=== PATIENT | female | born 1990 | race Caucasian/White ===

== ENCOUNTER 2018-03-13 12:30 | Outpatient (CLI) ==
--- NOTE | 2018-03-14 01:31 | DI ---
EXAM: Left hip, two views HISTORY: Pain COMPARISON: None. FINDINGS: The alignment is normal. Joint spaces appear normal. No fracture is identified. Intraut erine device seen in the central pelvis IMPRESSION: No fracture or dislocation or joint space narrowing is identified.
--- NOTE | 2018-03-14 01:35 | DI ---
EXAM: Right knee, four views HISTORY: Pain COMPARISON: None. FINDINGS: The alignment is normal. Joint spaces appear normal. No fracture is identified. IMPRESSION: No fracture or dislocation or joint space narrowing is identified.
--- NOTE | 2018-03-14 08:56 | DI ---
EXAM: Four views of the thoracolumbar spine. History: Lower back pain. Findings: No acute fracture or subluxation of the thoracic spine. A few prominent Schmorl's nodes a re seen within the lower thoracic spine. Mild disc space narrowing seen within the lower thoracic sp ine. No abnormal calcifications or radiopaque foreign bodies. Impression: 1. No acute osseous abnormality. 2. Mild degenerative changes within the lower thoracic spine.
== END 2018-03-13 12:31 | disposition home or self-care (01) ==
LOC: LAB 12:30
PROVIDERS: ATTEND Nurse Practitioner Family
DX: Z00.00 Encounter for general adult medical examination without abnormal findings (principal); M25.561 Pain in right knee; M25.552 Pain in left hip; G89.29 Other chronic pain; M54.5 Low back pain
CPT/HCPCS: 36415; 80053; 80061; 84443; 85025

== ENCOUNTER 2018-11-25 12:46 | Outpatient (CLI) | END 2018-11-25 12:47 | disposition home or self-care (01) | LOC: RHC-LAB 12:46 → FCC-LAB 12:47 | PROVIDERS: ATTEND Nurse Practitioner Family | DX: J02.9 Acute pharyngitis, unspecified (principal); L52 Erythema nodosum | CPT/HCPCS: 36415; 80053; 85025; 85651; 86060; 86140; 86430; 87651 ==

== ENCOUNTER 2018-11-29 08:18 | Outpatient (CLI) | END 2018-11-29 08:19 | disposition home or self-care (01) | LOC: RHC-LAB 08:18 → FCC-LAB 08:19 | PROVIDERS: ATTEND Family Medicine | DX: L52 Erythema nodosum (principal); R70.0 Elevated erythrocyte sedimentation rate | CPT/HCPCS: 36415; 83520; 86038; 86256 ==

== ENCOUNTER 2018-12-02 10:34 | Outpatient (CLI) ==
--- NOTE | 2018-12-02 11:15 | DI ---
Examination: Left hip two views Clinical history: Left hip pain Cortices are smooth. Bone density is normal. Joint spaces preserved. The tension and compression t rabeculae are intact. Impression: 1. No significant left hip radiographic abnormality.
== END 2018-12-02 10:35 | disposition home or self-care (01) ==
LOC: LAB 10:34
PROVIDERS: ATTEND Family Medicine
DX: L52 Erythema nodosum (principal); M25.552 Pain in left hip; G89.29 Other chronic pain
CPT/HCPCS: 36415; 85651; 86140